=== PATIENT | female | born 1970 | race Caucasian/White ===

== ENCOUNTER 2019-11-04 04:24 | Emergency (ER) | payer BC ==
[2019-11-04 04:39] VITALS: RESP 18
[2019-11-04] MEDS ORDERED: KETOROLAC 30 MG/ML 1 ML VIAL IVP STA (04:45)
[2019-11-04] MEDS ORDERED: SODIUM CHLORIDE 0.9% 1,000 ML IV STA ×2 (04:45)
[2019-11-04] MEDS ORDERED: MORPHINE SULFATE 4 MG/ML SYRINGE IV STA (04:45)
--- NOTE | 2019-11-04 04:59 | ED ---
Back Pain HPI - General Chief Complaint: Back Pain/Injury Stated Complaint: lower back pain,vomiting Time Seen by Provider: 11/04/19 04:26 Source: patient, RN notes reviewed, old records reviewed Limitations: no limitations - History of Present Illness Initial Comments: This is a 49-year-old female DF for evaluation she presents today for evaluation regards to right-sided abdominal pain right-sided flank pain radiating to groin. Patient has no significant medical history is contributory, no significant surgical history no fevers no nausea no vomiting no diarrhea. Right-sided flank pain again recently started tonight no modifying factors to improve the pain MD Complaint: back pain, other (Right flank pain) -: hour(s) Similar Symptoms Previously: No Place: home Radiation: groin Severity: severe Severity scale (1-10): 8 Quality: sharp Consistency: constant Improves With: none Worsens With: none Associated Symptoms: denies other symptoms - Related Data Allergies Allergy/AdvReac Type Severity Reaction Status Date / Time Penicillins Allergy Rash/Hives Verified 11/04/19 04:39 Review of Systems ROS Statement: Those systems with pertinent positive or pertinent negative responses have been documented in the HPI. ROS Other: All systems not noted in ROS Statement are negative. Past Medical History Past Medical History: Diabetes Mellitus, Hypertension History of Any Multi-Drug Resistant Organisms: None Reported Past Surgical History: Tonsillectomy Past Psychological History: No Psychological Hx Reported Smoking Status: Never smoker Past Alcohol Use History: None Reported Past Drug Use History: None Reported General Exam - General Exam Comments Initial Comments: Complaining of right flank pain but complains of no tenderness Limitations: no limitations General appearance: alert, in no apparent distress, anxious Head exam: Present: atraumatic, normocephalic, normal inspection Eye exam: Present: normal appearance, PERRL, EOMI. Absent: scleral icterus, conjunctival injection, periorbital swelling ENT exam: Present: normal exam, mucous membranes moist Neck exam: Present: normal inspection. Absent: tenderness, meningismus, lymphadenopathy Respiratory exam: Present: normal lung sounds bilaterally. Absent: respiratory distress, wheezes, rales, rhonchi, stridor Cardiovascular Exam: Present: regular rate, normal rhythm, normal heart sounds. Absent: systolic murmur, diastolic murmur, rubs, gallop, clicks GI/Abdominal exam: Present: soft, normal bowel sounds. Absent: distended, tenderness, guarding, rebound, rigid Extremities exam: Present: normal inspection, full ROM, normal capillary refill. Absent: tenderness, pedal edema, joint swelling, calf tenderness Back exam: Present: normal inspection Neurological exam: Present: alert, oriented X3, CN II-XII intact Psychiatric exam: Present: normal affect, normal mood Skin exam: Present: warm, dry, intact, normal color. Absent: rash Course Vital Signs 11/04/19 11/04/19 11/04/19 04:37 05:40 07:02 Temperature 97.9 F 97.8 F Pulse Rate 81 76 Respiratory 18 18 Rate Blood Pressure 206/116 174/89 168/74 O2 Sat by Pulse 98 98 Oximetry - Reevaluation(s) Reevaluation #1: Medical record is reviewed Patient has good pain control Medical Decision Making - Medical Decision Making 49 female presents today for evaluation of flank pain or right ureteral calculus pain is controlled here in the ER no UTI patient can be discharged home - Lab Data Result diagrams: 11/04/19 04:57 11/04/19 04:57 Lab Results 11/04/19 11/04/19 11/04/19 Range/Units 04:57 04:57 04:57 WBC 7.9 (3.8-10.6) k/uL RBC 5.12 (3.80-5.40) m/uL Hgb 14.9 (11.4-16.0) gm/dL Hct 44.8 (34.0-46.0) % MCV 87.5 (80.0-100.0) fL MCH 29.1 (25.0-35.0) pg MCHC 33.3 (31.0-37.0) g/dL RDW 13.2 (11.5-15.5) % Plt Count 219 (150-450) k/uL Neutrophils % 69 % Lymphocytes % 21 % Monocytes % 6 % Eosinophils % 2 % Basophils % 1 % Neutrophils # 5.4 (1.3-7.7) k/uL Lymphocytes # 1.6 (1.0-4.8) k/uL Monocytes # 0.4 (0-1.0) k/uL Eosinophils # 0.2 (0-0.7) k/uL Basophils # 0.0 (0-0.2) k/uL Sodium 136 L (137-145) mmol/L Potassium 3.1 L (3.5-5.1) mmol/L Chloride 99 (98-107) mmol/L Carbon Dioxide 25 (22-30) mmol/L Anion Gap 12 mmol/L BUN 13 (7-17) mg/dL Creatinine 0.76 (0.52-1.04) mg/dL Est GFR (CKD-EPI)AfAm >90 (>60 ml/min/1.73 sqM) Est GFR (CKD-EPI)NonAf >90 (>60 ml/min/1.73 sqM) Glucose 291 H (74-99) mg/dL Lactic Ac Sepsis Rflx Plasma Lactic Acid Agustin (0.7-2.0) mmol/L Calcium 9.2 (8.4-10.2) mg/dL Total Bilirubin 0.5 (0.2-1.3) mg/dL AST 30 (14-36) U/L ALT 30 (4-34) U/L Alkaline Phosphatase 78 (38-126) U/L Total Protein 6.9 (6.3-8.2) g/dL Albumin 4.0 (3.5-5.0) g/dL Amylase 45 (30-110) U/L Lipase 181 (23-300) U/L Urine Color Yellow Urine Appearance Cloudy H (Clear) Urine pH 5.5 (5.0-8.0) Ur Specific [place] 1.025 (1.001-1.035) Urine Protein 2+ H (Negative) Urine Glucose (UA) 4+ H (Negative) Urine Ketones 2+ H (Negative) Urine Blood Moderate H (Negative) Urine Nitrite Negative (Negative) Urine Bilirubin Negative (Negative) Urine Urobilinogen <2.0 (<2.0) mg/dL Ur Leukocyte Esterase Negative (Negative) Urine RBC 22 H (0-5) /hpf Urine WBC 7 H (0-5) /hpf Ur Squamous Epith Cells 6 H (0-4) /hpf Urine Bacteria Many H (None) /hpf Hyaline Casts 1 (0-2) /lpf Urine Mucus Few H (None) /hpf 11/04/19 11/04/19 Range/Units 04:57 05:52 WBC (3.8-10.6) k/uL RBC (3.80-5.40) m/uL Hgb (11.4-16.0) gm/dL Hct (34.0-46.0) % MCV (80.0-100.0) fL MCH (25.0-35.0) pg MCHC (31.0-37.0) g/dL RDW (11.5-15.5) % Plt Count (150-450) k/uL Neutrophils % % Lymphocytes % % Monocytes % % Eosinophils % % Basophils % % Neutrophils # (1.3-7.7) k/uL Lymphocytes # (1.0-4.8) k/uL Monocytes # (0-1.0) k/uL Eosinophils # (0-0.7) k/uL Basophils # (0-0.2) k/uL Sodium (137-145) mmol/L Potassium (3.5-5.1) mmol/L Chloride (98-107) mmol/L Carbon Dioxide (22-30) mmol/L Anion Gap mmol/L BUN (7-17) mg/dL Creatinine (0.52-1.04) mg/dL Est GFR (CKD-EPI)AfAm (>60 ml/min/1.73 sqM) Est GFR (CKD-EPI)NonAf (>60 ml/min/1.73 sqM) Glucose (74-99) mg/dL Lactic Ac Sepsis Rflx Y Plasma Lactic Acid Agustin 3.4 H* (0.7-2.0) mmol/L Calcium (8.4-10.2) mg/dL Total Bilirubin (0.2-1.3) mg/dL AST (14-36) U/L ALT (4-34) U/L Alkaline Phosphatase (38-126) U/L Total Protein (6.3-8.2) g/dL Albumin (3.5-5.0) g/dL Amylase (30-110) U/L Lipase (23-300) U/L Urine Color Urine Appearance (Clear) Urine pH (5.0-8.0) Ur Specific [place] (1.001-1.035) Urine Protein (Negative) Urine Glucose (UA) (Negative) Urine Ketones (Negative) Urine Blood (Negative) Urine Nitrite (Negative) Urine Bilirubin (Negative) Urine Urobilinogen (<2.0) mg/dL Ur Leukocyte Esterase (Negative) Urine RBC (0-5) /hpf Urine WBC (0-5) /hpf Ur Squamous Epith Cells (0-4) /hpf Urine Bacteria (None) /hpf Hyaline Casts (0-2) /lpf Urine Mucus (None) /hpf - Radiology Data Radiology results: report reviewed (CT abdomen and pelvis shows positive right ureteral calculus), image reviewed Disposition Clinical Impression: Right ureteral calculus, Kidney stone Disposition: HOME SELF-CARE Condition: Good Instructions (If sedation given, give patient instructions): Kidney Stones (ED) Is patient prescribed a controlled substance at d/c from ED?: No Referrals: Nonstaff,Physician [Primary Care Provider] - 1-2 days
[2019-11-04 05:25] LABS: Basophils % (A) 1 %; Eosinophils # (A) 0.2 k/uL (0-0.7); Eosinophils % (A) 2 %; HCT 44.8 % (34.0-46.0); HGB 14.9 gm/dL (11.4-16.0); Lymphocytes # (A) 1.6 k/uL (1.0-4.8); Lymphocytes % (A) 21 %; MCH 29.1 pg (25.0-35.0); MCHC 33.3 g/dL (31.0-37.0); MCV 87.5 fL (80.0-100.0); Mean Platelet Volume 8.1; Monocytes # (A) 0.4 k/uL (0-1.0); Monocytes % (A) 6 %; Neutrophils # (A) 5.4 k/uL (1.3-7.7); Neutrophils % (A) 69 %; Platelet Count 219 k/uL (150-450); RBC 5.12 m/uL (3.80-5.40); RDW 13.2 % (11.5-15.5); WBC 7.9 k/uL (3.8-10.6)
[2019-11-04 05:34] LABS: Appearance,Urine Cloudy (Clear); Bacteria,Urine Many /hpf; Bilirubin,Urine Negative (Negative); Blood,Urine Moderate (Negative); Color,Urine Yellow; Glucose,Urine (UA) 4+ (Negative); Hyaline Casts,Urine 1 /lpf (0-2); Leukocyte Esterase,Urine Negative (Negative); Mucus,Urine Few /hpf; Nitrite,Urine Negative (Negative); PH, Urine 5.5 (5.0-8.0); Protein,Urine 2+ (Negative); RBC,Urine 22 /hpf (0-5); Specific Gravity,Urine 1.025 (1.001-1.035); Squamous Epithelial Cell,Urine 6 /hpf (0-4); Urobilinogen,Urine <2.0 mg/dL (<2.0); WBC,Urine 7 /hpf (0-5)
[2019-11-04 05:37] LABS: Ketones,Urine 2+ (Negative)
[2019-11-04 05:40] LABS: ALT 30 U/L (4-34); AST 30 U/L (14-36); African American GFR (CKD) >90 (>60 ml/min/1.73 sqM); Alkaline Phosphatase 78 U/L (38-126); Amylase 45 U/L (30-110); Anion Gap 12 mmol/L; Blood Urea Nitrogen 13 mg/dL (7-17); Calcium 9.2 mg/dL (8.4-10.2); Carbon Dioxide 25 mmol/L (22-30); Chloride 99 mmol/L (98-107); Glucose 291 mg/dL (74-99); Non-African American GFR(CKD) >90 (>60 ml/min/1.73 sqM); Potassium 3.1 mmol/L (3.5-5.1); Sodium 136 mmol/L (137-145); Total Bilirubin 0.5 mg/dL (0.2-1.3); Total Protein 6.9 g/dL (6.3-8.2)
--- NOTE | 2019-11-04 06:31 | CT ---
EXAMINATION TYPE: CT abdomen pelvis wo con DATE OF EXAM: 11/04/2019 COMPARISON: None HISTORY: RUQ pain CT DLP: 1421.4 mGycm Automated exposure control for dose reduction was used. Multiple axial sections were obtained from the diaphragm to the floor the pelvis without contrast. FINDINGS: Lung bases are clear. There is no pleural effusion. Heart size is normal. There is no pericardial eff usion. There is some fatty infiltration of the liver. Spleen is intact. The stomach is intact. There is smal l hiatal hernia. There is no adrenal mass. Kidneys have normal size. There is mild right-sided perinephric edema. Ther e is right side hydronephrosis and hydroureter. There is 5 mm calculus in the distal right ureter. Th ere is no inguinal hernia. Bladder distends smoothly. Uterus is anteverted. There is probably a 4 cm cyst on the right ovary. There is no free fluid in the pelvis. The appendix is medial and appears normal. There is no mesenteric edema. There is no ascites or free air. There is no sign of bowel obstruction. Lumbar vertebra have fairly normal alignment. There is mi ld narrowing of the disc spaces at L2-3 L3-4. There is no compression fracture. The bony pelvis appea rs intact. There is a mild relative spinal stenosis at L2-3 L3-4 due to posterior spurring and calcif ication along the posterior longitudinal ligament. IMPRESSION: Obstructing calculus distal right ureter with hydronephrosis and hydroureter. No calculus seen within the kidneys. Normal appendix. Lumbar spondylotic changes.
[2019-11-04] MEDS ORDERED: ONDANSETRON 4 MG ODT STARTER PACK 2 TAB BTL PO STA (06:32)
[2019-11-04] MEDS ORDERED: traMADol 50 MG TAB PO STA (06:32)
[2019-11-04] MEDS ORDERED: TAMSULOSIN 0.4 MG CAP.ER.24H PO STA (06:32)
[2019-11-04] MEDS ORDERED: traMADol 50 MG STARTER PACK 3 TAB BTL PO STA (06:32)
[2019-11-04 07:04] VITALS: BP 168/74; PULSE 76; TEMP 97.8
== END 2019-11-04 07:03 | disposition home or self-care (01) ==
LOC: SUPCPDRO 04:24 → EC 04:24
DX: N20.2 Calculus of kidney with calculus of ureter (principal); Z88.0 Allergy status to penicillin
CPT/HCPCS: 36415; 80053; 82150; 83605; 83690; 85025; 81001; 74176; 99284; 96374; 96375; 96361 ×2; J2270; J1885; S0119